=== PATIENT | female | born 1990 | race American Indian/Alaskan Native ===

== ENCOUNTER 2016-06-01 13:33 | Emergency (ER) | payer MEDICAID ==
[2016-06-01 13:33] VITALS: BMI 28.1
[2016-06-01 13:39] VITALS: BP 143/73; PULSE 118; RESP 16; TEMP 98.1; O2SAT 98
[2016-06-01] MEDS ORDERED: Naproxen 550 mg Tab PO STA (14:11)
[2016-06-01] MEDS ORDERED: Naproxen 550 mg Tab PO ONE (14:23)
--- NOTE | 2016-06-01 14:34 | C.PDOC ---
History Of Present Illness The patient, a 25 y/o female whose PMHx includes Asthma, presents to the ED for evaluation of a sore throat and subjective fever which began around 3 days ago. Patient reports pain when she swallows. Patient states she experienced similar throat pain around 1 month ago and was given prescription for Amoxicillin. Patient is now concerned that her symptoms have returned and presents to the ED for further evaluation. Patient denies fever, chills, vomiting, and diarrhea. Time Seen by Provider: 06/01/16 13:59 Chief Complaint (Nursing): ENT Problem History Per: Patient History/Exam Limitations: None Onset/Duration Of Symptoms: Days (3) Current Symptoms Are (Timing): Still Present Quality (Ear): Other (+pain with swallowing ) Past Medical History Reviewed: Historical Data, Nursing Documentation, Vital Signs Vital Signs: Last Vital Signs Temp 98.1 F 06/01/16 13:36 Pulse 118 H 06/01/16 13:36 Resp 16 06/01/16 13:36 BP 143/73 06/01/16 13:36 Pulse Ox 98 06/01/16 14:44 - Medical History PMH: Asthma, HTN, Kidney Stones (last summer) Surgical History: No Surg Hx - [facility] Procedures ARTIF RUPT MEMBRANES NEC (09/27/12) MANUAL ASSIST DELIV NEC (09/27/12) REPAIR OB LACERATION NEC (09/27/12) Family History: States: Unknown Family Hx - Social History Hx Tobacco Use: No Hx Alcohol Use: No Hx Substance Use: No Review Of Systems Except As Marked, All Systems Reviewed And Found Negative. Constitutional: Positive for: Fever (subjective). Negative for: Chills ENT: Positive for: Throat Pain Gastrointestinal: Negative for: Nausea, Vomiting Physical Exam - Physical Exam Appears: Non-toxic, No Acute Distress Skin: Normal Color, Warm, Dry Head: Atraumatic, Normacephalic Eye(s): bilateral: Normal Inspection Ear(s): Bilateral: Normal Nose: Normal, No Discharge Oral Mucosa: Moist, No Drooling Tongue: Normal Appearing Lips: Normal Appearing Throat: Erythema (mild, tonsillar ), No Exudate, Other (widly patent) Neck: Normal ROM, Supple, Other (+small cervical node that is tender to palpation ) Chest: Symmetrical, No Deformity, No Tenderness Cardiovascular: Rhythm Regular, No Murmur Respiratory: Normal Breath Sounds, No Rales, No Rhonchi, No Wheezing Gastrointestinal/Abdominal: Soft, No Tenderness, No Guarding, No Rebound Neurological/Psych: Oriented x3, Normal Speech, Normal Cognition Gait: Steady ED Course And Treatment O2 Sat by Pulse Oximetry: 98 (on RA) Pulse Ox Interpretation: Normal Medical Decision Making Medical Decision Making: Plan: labs ordered and reviewed. Patient received Naproxen PO. Strep (+) Tx Rx pen VK - Disposition - Disposition Referrals: Jacob Mata MD [Staff Provider] - Disposition: HOME/ ROUTINE Disposition Time: 14:44 Condition: GOOD Additional Instructions: Rest plenty of fluids Return to the ED for any new or worsening symptoms Prescriptions: Naproxen [Naprosyn] 1 tab PO BID PRN #25 tab PRN Reason: Pain Penicillin VK [Pen-Vee K] 2 tab PO BID #28 tab Instructions: Strep Throat (ED) - Clinical Impression Clinical Impression: Strep tonsillitis - Scribe Statement The provider has reviewed the documentation as recorded by the Scribe (Mona Pemberton) Provider Attestation: All medical record entries made by the Scribe were at my direction and personally dictated by me. I have reviewed the chart and agree that the record accurately reflects my personal performance of the history, physical exam, medical decision making, and the department course for this patient. I have also personally directed, reviewed, and agree with the discharge instructions and disposition.
== END 2016-06-01 14:55 | disposition home or self-care (01) ==
LOC: C.ER 13:33
DX: J03.00 Acute streptococcal tonsillitis, unspecified (principal)